=== PATIENT | female | born 1930 | race Caucasian/White ===

== ENCOUNTER 2017-04-05 11:21 | Inpatient (IN) | payer MEDICARE ==
[~2017-04-05] VITALS: Ht 170.2 cm; Wt 66.1 kg
[2017-04-05] MEDS ORDERED: PANTOPRAZOLE 80 MG in SODIUM CHLORIDE 0.9% 50 ML IVPB ONE (12:37)
[2017-04-05] MEDS ORDERED: PANT40TA5 PO (12:40)
[2017-04-05] MEDS ORDERED: CHOL500050 PO (12:40)
[2017-04-05] MEDS ORDERED: AMLO5TAB2 PO (12:40)
[2017-04-05] MEDS ORDERED: LEVO75TA5 PO (12:40)
[2017-04-05] MEDS ORDERED: DORZ10DR21 EACHEYE (12:40)
[2017-04-05] MEDS ORDERED: SITA1TAB PO (12:40)
[2017-04-05] MEDS ORDERED: SODIUM CHLORIDE 0.9% 1,000ML IVBOLUS ONE (13:00)
[2017-04-05] MEDS ORDERED: SODIUM CHLORIDE FLUSH 10ML SYR IVF ONE (13:00)
[2017-04-05 13:28] LABS: BLOOD UREA NITROGEN 68 mg/dL (7-18)
[2017-04-05 13:58] LABS: ASPARTATE AMINO TRANSFERASE 25 U/L (15-37)
[2017-04-05] MEDS ORDERED: SODIUM CHLORIDE FLUSH 10ML SYR IVF PRN (16:30)
[2017-04-05] MEDS ORDERED: ACETAMINOPHEN 325 MG TABLET PO PRN (17:00)
[2017-04-05] MEDS ORDERED: HYDROcodone/APAP 5/325 TABLET PO PRN (17:00)
[2017-04-05] MEDS ORDERED: morphine SULFATE 10 MG/ML, 1ML IVPush PRN (17:00)
[2017-04-05] MEDS ORDERED: ONDANSETRON 2MG/ML, 2ML IVPush PRN (17:00)
[2017-04-05] MEDS ORDERED: DOCUSATE 100 MG CAPSULE PO PRN (17:00)
[2017-04-05] MEDS ORDERED: BISACODYL 10 MG SUPP PR PRN (17:00)
[2017-04-05] MEDS ORDERED: LABETALOL 5MG/ML 40ML VIAL IVPush PRN (17:00)
[2017-04-05] MEDS ORDERED: POLYETHYLENE GLYCOL 17 GM PACKET PO PRN (17:00)
[2017-04-05 18:30] VITALS: BP 151/81
[2017-04-05] MEDS: SODIUM CHLORIDE 0.9% 1,000 ML IV SCH (18:37)
[2017-04-05] MEDS: PANTOPRAZOLE 80 MG in SODIUM CHLORIDE 0.9% 100 ML IV SCH (20:20)
[2017-04-05] MEDS: DORZOLAMIDE HCL EACHEYE SCH (21:00)
[2017-04-05] MEDS: TIMOLOL MALEAT EACHEYE SCH (21:00)
[2017-04-05] MEDS: [UNRECOGNIZED DRUG - OTHER] EACHEYE SCH (21:00)
[2017-04-06 01:15] VITALS: BP 151/81
[2017-04-06 01:49] VITALS: BP 137/74
[2017-04-06] MEDS: SODIUM CHLORIDE 0.9% 1,000 ML IV SCH (05:06)
[2017-04-06 05:44] LABS: BLOOD UREA NITROGEN 59 mg/dL (7-18)
[2017-04-06] MEDS: PANTOPRAZOLE 80 MG in SODIUM CHLORIDE 0.9% 100 ML IV SCH (05:48)
[2017-04-06] MEDS: TIMOLOL MALEAT EACHEYE SCH ×2 (07:37→21:00)
[2017-04-06] MEDS: [UNRECOGNIZED DRUG - OTHER] EACHEYE SCH ×2 (07:37→21:00)
[2017-04-06] MEDS: DORZOLAMIDE HCL EACHEYE SCH ×2 (07:37→21:00)
[2017-04-06 07:41] VITALS: BP 149/73
[2017-04-06] MEDS ORDERED: FENTANYL PF 100 MCG/2ML ONE (07:41)
[2017-04-06] MEDS ORDERED: MIDAZOLAM 1 MG/ML, 5ML ONE (07:41)
[2017-04-06] MEDS: LEVOTHYROXINE 75 MCG TABLET PO SCH (08:38)
[2017-04-06] MEDS: AMLODIPINE 5 MG TABLET PO SCH (08:38)
[2017-04-06 08:39] VITALS: BP 149/71
[2017-04-06] MEDS: OMEPRAZOLE 20 MG CAPSULE.DR PO SCH ×2 (11:13→16:12)
[2017-04-06 13:57] VITALS: BP 130/81
[2017-04-06 18:51] VITALS: BP 142/66
[2017-04-07 00:50] VITALS: BP 148/79
[2017-04-07 06:29] LABS: BLOOD UREA NITROGEN 47 mg/dL (7-18)
[2017-04-07] MEDS: AMLODIPINE 5 MG TABLET PO SCH (07:20)
[2017-04-07] MEDS: OMEPRAZOLE 20 MG CAPSULE.DR PO SCH (07:21)
[2017-04-07] MEDS: LEVOTHYROXINE 75 MCG TABLET PO SCH (07:21)
[2017-04-07] MEDS: DORZOLAMIDE HCL EACHEYE SCH (07:21)
[2017-04-07] MEDS: TIMOLOL MALEAT EACHEYE SCH (07:21)
[2017-04-07] MEDS: [UNRECOGNIZED DRUG - OTHER] EACHEYE SCH (07:21)
[2017-04-07 07:27] VITALS: BP 144/78
[2017-04-07] MEDS ORDERED: OMEP-110 PO (08:17)
[2017-04-09] MEDS ORDERED: ERGOCALCIFEROL 50,000 UNIT CAPSULE PO SCH (17:00)
== END 2017-04-07 09:40 | disposition home or self-care (01) | DRG 377 ==
LOC: ED 14:21 → EDIP 16:16 → 3NE 17:42 → 3NW 17:46
PROC: 0DJ08ZZ Inspection of Upper Intestinal Tract, Via Natural or Artificial Opening Endoscopic (ICD-10-PCS; principal; 2017-04-06 08:00)
DX: K26.4 Chronic or unspecified duodenal ulcer with hemorrhage (principal); N17.0 Acute kidney failure with tubular necrosis; E87.2 Acidosis; D17.5 Benign lipomatous neoplasm of intra-abdominal organs; D35.02 Benign neoplasm of left adrenal gland; D72.829 Elevated white blood cell count, unspecified; E03.9 Hypothyroidism, unspecified; E11.65 Type 2 diabetes mellitus with hyperglycemia; F17.200 Nicotine dependence, unspecified, uncomplicated; I11.9 Hypertensive heart disease without heart failure; K86.89 Other specified diseases of pancreas; N28.1 Cyst of kidney, acquired; T39.395A Adverse effect of other nonsteroidal anti-inflammatory drugs [NSAID], initial encounter; Z79.84 Long term (current) use of oral hypoglycemic drugs; Z83.3 Family history of diabetes mellitus; Z85.038 Personal history of other malignant neoplasm of large intestine; Z85.068 Personal history of other malignant neoplasm of small intestine; Z87.11 Personal history of peptic ulcer disease; Z85.3 Personal history of malignant neoplasm of breast; Z79.899 Other long term (current) drug therapy; Z88.0 Allergy status to penicillin; Z88.5 Allergy status to narcotic agent; Z88.2 Allergy status to sulfonamides
CPT/HCPCS: 36415; 74176; 80048; 80053; 81001; 82436; 82570; 82962; 83690; 84133; 84300; 85014; 85018; 85025; 85027; 85610; 85730; 86677; 86850; 86900; 93005; 96361; 96365; 99152; 99153; J2250; J3010; C9113; J7030

== ENCOUNTER 2017-07-04 06:55 | Inpatient (IN) | payer MEDICARE ==
[~2017-07-04] VITALS: Ht 170.2 cm; Wt 65.0 kg
[~2017-07-04 06:55] MED LIST: AMLO5TAB2 PO; CHOL500050 PO; DORZ10DR21 EACHEYE; LEVO75TA5 PO; OMEP-110 PO; PANT40TA5 PO; SITA1TAB PO
[2017-07-04] MEDS ORDERED: SODIUM CHLORIDE 0.9% 1,000 ML IV ONE (07:31)
[2017-07-04] MEDS ORDERED: PANT40TA5 PO (07:32)
[2017-07-04] MEDS ORDERED: SITA1TAB PO (07:32)
[2017-07-04] MEDS ORDERED: ONDANSETRON 2MG/ML, 2ML ONE (07:45)
[2017-07-04] MEDS ORDERED: SODIUM CHLORIDE FLUSH 10ML SYR IVF ONE (08:00)
[2017-07-04] MEDS ORDERED: ONDANSETRON 2MG/ML, 2ML IVPush ONE (08:00)
[2017-07-04 08:17] LABS: HEMOGLOBIN 12.9 g/dL (11.7-16.4); WHITE BLOOD COUNT 11.6 x10^3/uL (3.4-10)
[2017-07-04 08:27] LABS: ASPARTATE AMINO TRANSFERASE 13 U/L (15-37); BLOOD UREA NITROGEN 37 mg/dL (7-18)
[2017-07-04] MEDS ORDERED: METOCLOPRAMIDE 5 MG/ML, 2ML ONE (09:09)
[2017-07-04] MEDS ORDERED: METOCLOPRAMIDE 5 MG/ML, 2ML IVPush ONE (09:30)
[2017-07-04] MEDS ORDERED: FAMOTIDINE 20 MG/2 ML IVPush ONE (09:30)
[2017-07-04] MEDS ORDERED: FAMOTIDINE 20 MG/2 ML ONE (10:45)
[2017-07-04] MEDS ORDERED: ACETAMINOPHEN 325 MG TABLET PO PRN (11:30)
[2017-07-04] MEDS ORDERED: ONDANSETRON ODT 4 MG PO PRN (11:30)
[2017-07-04] MEDS ORDERED: ONDANSETRON 2MG/ML, 2ML IVPush PRN (11:30)
[2017-07-04 12:02] LABS: IS PT STATUS REG ER OR PRE ER? NO
[2017-07-04 12:30] VITALS: BP 135/69
[2017-07-04] MEDS ORDERED: ENOXAPARIN 40 MG/0.4 ML SQ SCH (12:30)
[2017-07-04] MEDS: SODIUM CHLORIDE 0.9% 1,000 ML IV SCH (14:36)
[2017-07-04] MEDS: INSULIN ASPART 100 UNITS/ML, PEN SQ-INSULIN SCH ×2 (16:00→19:53)
[2017-07-04 19:15] VITALS: BP 135/67
[2017-07-04] MEDS: PANTOPROZOLE 40MG TABLET PO SCH (19:53)
[2017-07-05 02:13] VITALS: BP 131/71
[2017-07-05] MEDS: SODIUM CHLORIDE 0.9% 1,000 ML IV SCH ×2 (02:14→14:38)
[2017-07-05 05:15] LABS: HEMATOCRIT 36.9 % (34.6-47.8); HEMOGLOBIN 11.9 g/dL (11.7-16.4)
[2017-07-05 05:24] LABS: ASPARTATE AMINO TRANSFERASE 10 U/L (15-37); BLOOD UREA NITROGEN 36 mg/dL (7-18)
[2017-07-05] MEDS: INSULIN ASPART 100 UNITS/ML, PEN SQ-INSULIN SCH ×4 (07:00→20:00)
[2017-07-05 07:21] VITALS: BP 153/73
[2017-07-05] MEDS: PANTOPROZOLE 40MG TABLET PO SCH ×2 (07:25→20:03)
[2017-07-05] MEDS: LEVOTHYROXINE 75 MCG TABLET PO SCH (07:25)
[2017-07-05] MEDS: AMLODIPINE 5 MG TABLET PO SCH (07:25)
[2017-07-05 10:01] LABS: OCCBLD OBC PASS
[2017-07-05] MEDS: ENOXAPARIN 30 MG/0.3 ML SQ SCH (11:19)
[2017-07-05 13:13] VITALS: BP 145/67
[2017-07-05 19:17] VITALS: BP 138/68
[2017-07-06] MEDS: SODIUM CHLORIDE 0.9% 1,000 ML IV SCH (04:30)
[2017-07-06] MEDS: INSULIN ASPART 100 UNITS/ML, PEN SQ-INSULIN SCH ×2 (07:00→11:00)
[2017-07-06 07:15] VITALS: BP 153/70
[2017-07-06 08:16] LABS: BLOOD UREA NITROGEN 23 mg/dL (7-18)
[2017-07-06] MEDS: LEVOTHYROXINE 75 MCG TABLET PO SCH (08:20)
[2017-07-06] MEDS: AMLODIPINE 5 MG TABLET PO SCH (08:20)
[2017-07-06] MEDS: PANTOPROZOLE 40MG TABLET PO SCH (08:20)
[2017-07-06] MEDS ORDERED: SITA1TAB PO (11:08)
[2017-07-06] MEDS: ENOXAPARIN 30 MG/0.3 ML SQ SCH (12:30)
[2017-07-06 13:38] VITALS: BP 146/97
== END 2017-07-06 14:55 | disposition home or self-care (01) | DRG 682 ==
LOC: ED 08:31 → EDIP 09:36 → 3NW 12:20 → DCLOUNGE 07-06 13:35
PROVIDERS: ADMIT Hospitalist; ATTEND Internal Medicine
DX: N17.9 Acute kidney failure, unspecified (principal); E43 Unspecified severe protein-calorie malnutrition; E11.22 Type 2 diabetes mellitus with diabetic chronic kidney disease; K26.9 Duodenal ulcer, unspecified as acute or chronic, without hemorrhage or perforation; E44.1 Mild protein-calorie malnutrition; I44.7 Left bundle-branch block, unspecified; K52.9 Noninfective gastroenteritis and colitis, unspecified; E03.9 Hypothyroidism, unspecified; I12.9 Hypertensive chronic kidney disease with stage 1 through stage 4 chronic kidney disease, or unspecified chronic kidney disease; K21.9 Gastro-esophageal reflux disease without esophagitis; N18.3 Chronic kidney disease, stage 3 (moderate); Z79.84 Long term (current) use of oral hypoglycemic drugs; Z83.3 Family history of diabetes mellitus; Z85.038 Personal history of other malignant neoplasm of large intestine; Z85.3 Personal history of malignant neoplasm of breast; Z85.819 Personal history of malignant neoplasm of unspecified site of lip, oral cavity, and pharynx; Z87.11 Personal history of peptic ulcer disease; Z87.891 Personal history of nicotine dependence; Z90.49 Acquired absence of other specified parts of digestive tract; Z90.12 Acquired absence of left breast and nipple; Z88.0 Allergy status to penicillin; Z88.2 Allergy status to sulfonamides; Z88.8 Allergy status to other drugs, medicaments and biological substances
CPT/HCPCS: 36415; 80048; 80053; 81001; 82040; 82272; 82962; 83036; 83690; 83735; 84100; 84443; 84484; 85025; 87324; 93005; 96361; 96374; 96375; J2405; J2765; J7030; S0028